=== PATIENT | male | born 1990 | race Caucasian/White ===

== ENCOUNTER 2017-05-13 19:49 | Emergency (ER) | payer MEDICAID ==
[2017-05-13 20:33] LABS: BASOPHILS 0.4 % (0-2); EOSINOPHILS 2.8 % (0-7); HEMATOCRIT 45.1 % (42.0-54.0); HEMOGLOBIN 15.9 g/dL (13.5-17.5); IMMATURE GRANULOCYTES 0.4 % (0-5); LYMPHOCYTES 32.4 % (15-50); MCH 29.7 pg (26.0-34.0); MCHC 35.3 g/dL (31.0-37.0); MCV 84.3 fL (80.0-100.0); MEAN PLATELET VOLUME 11.1 fL (7.4-10.4); MONOCYTES 8.2 % (2-11); NEUTROPHILS 55.8 % (40-80); PLATELET COUNT 229 10x3/uL (130-400); RBC 5.35 10x6/uL (4.20-6.10); RDW 12.6 % (11.5-14.5); WBC 8.6 10x3/uL (4.8-10.8)
[2017-05-13 20:38] LABS: KETONE - SERUM NEGATIVE (NEGATIVE)
[2017-05-13 20:47] LABS: HEMOGLOBIN A1C 10.8 % (4.8-6.0)
[2017-05-13 20:58] LABS: ALBUMIN 4.3 g/dL (3.4-5.0); ALKALINE PHOSPHATASE 96 U/L (46-116); ALT (SGPT) 56 U/L (10-68); CALC OSMOLALITY 283 mosm/kg (275-300); CALCIUM 9.7 mg/dL (8.5-10.1); CARBON DIOXIDE 27.8 mmol/L (21.0-32.0); CHLORIDE - SERUM 97 mmol/L (98-107); CREATININE - SERUM 1.2 mg/dL (0.6-1.3); GLUCOSE 342 mg/dL (74-106); MAGNESIUM - SERUM 1.9 mg/dL (1.8-2.4); POTASSIUM - SERUM 4.4 mmol/L (3.5-5.1); PROTEIN - SERUM 8.3 g/dL (6.4-8.2); SODIUM 135 mmol/L (136-145); UREA NITROGEN 12 mg/dL (7-18); eGFR NON AFRICAN AMERICAN 78 mL/min (90-120)
[2017-05-13 21:31] LABS: APPEARANCE CLEAR (CLEAR); BILIRUBIN NEGATIVE (NEGATIVE); COLOR YELLOW (YELLOW); GLUCOSE 1000 mg/dL (NEGATIVE); KETONE LARGE mg/dL (NEGATIVE); LEUKOCYTE ESTERASE NEGATIVE (NEGATIVE); NITRITE NEGATIVE (NEGATIVE); PROTEIN NEGATIVE (NEGATIVE); SPECIFIC GRAVITY 1.025 (1.005-1.020); UROBILINOGEN NORMAL (NORMAL)
[2017-05-13 21:34] LABS: WHITE CELLS - URINE 0-5 /hpf (0-5)
== END 2017-05-13 23:13 | disposition home or self-care (01) ==
LOC: D.ER 19:49
PROVIDERS: Emergency Medicine; Physician Assistant
DX: E11.65 Type 2 diabetes mellitus with hyperglycemia (principal); R53.83 Other fatigue; R63.4 Abnormal weight loss; F17.200 Nicotine dependence, unspecified, uncomplicated

== ENCOUNTER 2017-05-23 21:00 | Emergency (ER) | payer MEDICAID ==
[2017-05-23 22:21] LABS: BASOPHILS 0.3 % (0-2); EOSINOPHILS 1.4 % (0-7); HEMATOCRIT 41.1 % (42.0-54.0); HEMOGLOBIN 14.2 g/dL (13.5-17.5); IMMATURE GRANULOCYTES 0.2 % (0-5); LYMPHOCYTES 16.7 % (15-50); MCH 29.3 pg (26.0-34.0); MCHC 34.5 g/dL (31.0-37.0); MCV 84.9 fL (80.0-100.0); MEAN PLATELET VOLUME 10.2 fL (7.4-10.4); NEUTROPHILS 72.4 % (40-80); RBC 4.84 10x6/uL (4.20-6.10); RDW 12.3 % (11.5-14.5); WBC 12.6 10x3/uL (4.8-10.8)
[2017-05-23 22:33] LABS: PLATELET COUNT 281 10x3/uL (130-400)
[2017-05-23 22:38] LABS: ALBUMIN 3.5 g/dL (3.4-5.0); ALKALINE PHOSPHATASE 104 U/L (46-116); ALT (SGPT) 27 U/L (10-68); BILIRUBIN - TOTAL 0.65 mg/dL (0.2-1.3); CALC OSMOLALITY 282 mosm/kg (275-300); CALCIUM 9.3 mg/dL (8.5-10.1); CARBON DIOXIDE 25.4 mmol/L (21.0-32.0); CHLORIDE - SERUM 100 mmol/L (98-107); CREATININE - SERUM 1.2 mg/dL (0.6-1.3); MAGNESIUM - SERUM 1.6 mg/dL (1.8-2.4); POTASSIUM - SERUM 3.6 mmol/L (3.5-5.1); SODIUM 139 mmol/L (136-145); UREA NITROGEN 8 mg/dL (7-18); eGFR NON AFRICAN AMERICAN 78 mL/min (90-120)
[2017-05-23 22:39] LABS: GLUCOSE 233 mg/dL (74-106)
== END 2017-05-24 00:17 | disposition home or self-care (01) ==
LOC: D.ER 21:00
PROVIDERS: Nurse Practitioner Family
DX: L02.31 Cutaneous abscess of buttock (principal); E11.9 Type 2 diabetes mellitus without complications

== ENCOUNTER 2017-05-25 16:07 | Emergency (ER) | payer MEDICAID | END 2017-05-25 17:40 | disposition home or self-care (01) | LOC: D.ER 16:07 | DX: L02.31 Cutaneous abscess of buttock (principal) ==

== ENCOUNTER 2017-05-27 16:41 | Emergency (ER) | payer MEDICAID | END 2017-05-27 19:24 | disposition home or self-care (01) | LOC: D.ER 16:41 | DX: L02.31 Cutaneous abscess of buttock (principal) ==

== ENCOUNTER 2018-01-23 07:14 | Emergency (ER) | payer MEDICAID ==
[2018-01-23 07:39] LABS: BASOPHILS 1.1 % (0-2); EOSINOPHILS 3.2 % (0-7); HEMATOCRIT 42.8 % (42.0-54.0); IMMATURE GRANULOCYTES 0.4 % (0-5); LYMPHOCYTES 29.8 % (15-50); MCH 29.4 pg (26.0-34.0); MCV 83.8 fL (80.0-100.0); MEAN PLATELET VOLUME 10.5 fL (7.4-10.4); MONOCYTES 8.4 % (2-11); NEUTROPHILS 57.1 % (40-80); PLATELET COUNT 259 10x3/uL (130-400); RBC 5.11 10x6/uL (4.20-6.10); RDW 12.8 % (11.5-14.5); WBC 10.5 10x3/uL (4.8-10.8)
[2018-01-23 08:06] LABS: ALBUMIN 3.7 g/dL (3.4-5.0); ALKALINE PHOSPHATASE 90 U/L (46-116); ALT (SGPT) 43 U/L (10-68); AMYLASE - SERUM 29 U/L (25-115); CALCIUM 9.3 mg/dL (8.5-10.1); CARBON DIOXIDE 24.9 mmol/L (21.0-32.0); CHLORIDE - SERUM 99 mmol/L (98-107); CREATININE - SERUM 1.1 mg/dL (0.6-1.3); LIPASE 120 U/L (73-393); PROTEIN - SERUM 8.6 g/dL (6.4-8.2); SODIUM 134 mmol/L (136-145); UREA NITROGEN 18 mg/dL (7-18); eGFR NON AFRICAN AMERICAN 85 mL/min (90-120)
[2018-01-23 08:13] LABS: CALC OSMOLALITY 280 mosm/kg (275-300); GLUCOSE 299 mg/dL (74-106)
== END 2018-01-23 09:43 | disposition home or self-care (01) ==
LOC: D.ER 07:14
PROVIDERS: Family Medicine
DX: K52.9 Noninfective gastroenteritis and colitis, unspecified (principal); E11.9 Type 2 diabetes mellitus without complications; Z79.4 Long term (current) use of insulin

== ENCOUNTER 2018-03-10 18:17 | Emergency (ER) | payer MEDICAID ==
[~2018-03-10] VITALS: Ht 175.3 cm; Wt 100.0 kg
[2018-03-10 18:24] VITALS: Ht 175.3 cm; Wt 100.0 kg
[2018-03-10] MEDS ORDERED: GLUCOPHAGE500 MG PO (18:25)
[2018-03-10] MEDS ORDERED: MUPIROCIN22 GM TOPICAL (19:01)
[2018-03-10] MEDS ORDERED: BACTRIM DS TABL1 TAB PO (19:01)
[2018-03-10 19:23] VITALS: BP 123/82
== END 2018-03-10 19:24 | disposition home or self-care (01) ==
LOC: D.ER 18:17
DX: L03.114 Cellulitis of left upper limb (principal)

== ENCOUNTER 2019-08-14 18:56 | Emergency (ER) | payer SELFPAY ==
[~2019-08-14] VITALS: Ht 175.3 cm; Wt 77.3 kg
[~2019-08-14 18:56] MED LIST: BACTRIM DS TABL1 TAB PO; GLUCOPHAGE500 MG PO; MUPIROCIN22 GM TOPICAL
[2019-08-14 19:09] VITALS: Ht 175.3 cm; Wt 77.3 kg
[2019-08-14 19:47] LABS: BASOPHILS 0.9 % (0-2); EOSINOPHILS 4.4 % (0-7); HEMATOCRIT 42.2 % (42.0-54.0); HEMOGLOBIN 14.6 g/dL (13.5-17.5); IMMATURE GRANULOCYTES 0.2 % (0-5); MCH 29.3 pg (26.0-34.0); MCHC 34.6 g/dL (31.0-37.0); MCV 84.7 fL (80.0-100.0); MEAN PLATELET VOLUME 10.6 fL (7.4-10.4); MONOCYTES 10.1 % (2-11); NEUTROPHILS 48.4 % (40-80); PLATELET COUNT 303 10x3/uL (130-400); RBC 4.98 10x6/uL (4.20-6.10); RDW 12.6 % (11.5-14.5); WBC 8.2 10x3/uL (4.8-10.8)
[2019-08-14 20:04] LABS: APPEARANCE CLEAR (CLEAR); COLOR YELLOW (YELLOW); GLUCOSE 1000 mg/dL (NEGATIVE); KETONE NEGATIVE (NEGATIVE); NITRITE NEGATIVE (NEGATIVE); PROTEIN NEGATIVE (NEGATIVE)
[2019-08-14 20:05] LABS: BILIRUBIN NEGATIVE (NEGATIVE); UROBILINOGEN NORMAL (NORMAL)
[2019-08-14 20:10] LABS: CARBON DIOXIDE 25.2 mmol/L (21.0-32.0); CHLORIDE - SERUM 92 mmol/L (98-107); CREATININE - SERUM 1.2 mg/dL (0.6-1.3); POTASSIUM - SERUM 3.8 mmol/L (3.5-5.1); SODIUM 130 mmol/L (136-145); UREA NITROGEN 14 mg/dL (7-18); eGFR NON AFRICAN AMERICAN 77 mL/min (90-120)
[2019-08-14 20:12] LABS: CALC OSMOLALITY 289 mosm/kg (275-300); GLUCOSE 609 mg/dL (74-106)
[2019-08-14 20:22] LABS: ALBUMIN 3.7 g/dL (3.4-5.0); ALKALINE PHOSPHATASE 139 U/L (46-116); BILIRUBIN - TOTAL 0.53 mg/dL (0.2-1.3); CKMB 0.2 U/L (0.0-3.6); CREATINE KINASE 46 UL (21-232); LIPASE 183 U/L (73-393); MAGNESIUM - SERUM 1.8 mg/dL (1.8-2.4); PROTEIN - SERUM 8.2 g/dL (6.4-8.2)
[2019-08-14 20:24] LABS: ALT (SGPT) 26 U/L (10-68); TROPONIN-I < 0.017 ng/mL (0.000-0.060)
[2019-08-14 22:55] VITALS: BP 120/72
== END 2019-08-14 22:55 | disposition home or self-care (01) ==
LOC: D.ER 18:56
PROVIDERS: Family Medicine
DX: E11.65 Type 2 diabetes mellitus with hyperglycemia (principal); Z79.84 Long term (current) use of oral hypoglycemic drugs; R07.9 Chest pain, unspecified; I10 Essential (primary) hypertension; M54.9 Dorsalgia, unspecified; F17.290 Nicotine dependence, other tobacco product, uncomplicated